=== PATIENT | female | born 1990 | race Asian ===

== ENCOUNTER 2017-05-23 20:13 | Emergency (ER) | payer BC ==
[2017-05-23 20:27] VITALS: BP 128/78
[2017-05-23] MEDS ORDERED: Silver Sulfadiazine 1%* 20 GM TOPICAL ONE (21:33)
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
== END 2017-05-23 22:11 | disposition home or self-care (01) ==
LOC: UCEAST 20:13
DX: T23.222A Burn of second degree of single left finger (nail) except thumb, initial encounter (principal); T23.132A Burn of first degree of multiple left fingers (nail), not including thumb, initial encounter; T31.0 Burns involving less than 10% of body surface; X10.2XXA Contact with fats and cooking oils, initial encounter; Y93.G3 Activity, cooking and baking; Y92.9 Unspecified place or not applicable; Y99.9 Unspecified external cause status
CPT/HCPCS: 99212; A9270-GY; G0463